=== PATIENT | female | born 1990 | race Caucasian/White ===

== ENCOUNTER 2024-05-24 14:42 | Inpatient (IN) | payer BC, SELFPAY ==
[2024-05-24] VITALS (7 sets, daily range): BP systolic 124–131; BP diastolic 66–81; BMI 27.5; BMI 27.9
[2024-05-24 09:37] LABS: Glucose - Point of Care 111 mg/dl (70-99)
--- NOTE | 2024-05-24 09:46 | EDRN ---
[facility] currently at the pts bedside speaking with the pt and the pts spouse, the pt is lethargic and pale, VS WNL, pt is bradycardic
[2024-05-24 10:01] LABS: % Basophils 0.7 % (0-2); % Eosinophils 0.1 % (0-6); % Immature Granulocytes 0.3 % (0-0.5); % Lymphocytes 12.4 % (20.5-51.1); % Neutrophils 83.5 % (42.2-75.2); Absolute Basophils 0.1 10^3/uL (0-0.2); Absolute Lymphocytes 1.4 10^3/uL (1.2-3.4); Absolute Monocytes 0.3 10^3/uL (0.1-0.6); Absolute Neutrophils 9.5 10^3/uL (1.4-6.5); Hematocrit 38.8 % (37.0-47.0); Hemoglobin 13.5 g/dL (12.0-16.0); Mean Corp Hgb Conc. 34.8 g/dL (33.0-37.0); Mean Corpuscular Hgb 29.5 pg (27.0-31.0); Mean Corpuscular Volume 84.7 fL (81.0-99.0); Mean Platelet Volume 9.3 fL (7.4-10.4); Nucleated Red Blood Cells % 0 %; Platelet Count 330 10^3/uL (130-400); Red Blood Cell Count 4.58 10^6/uL (4.20-5.40); Red Cell Dist. Width 12.4 % (11.5-14.5); White Blood Cell Count 11.3 10^3/uL (4.8-10.8)
[2024-05-24 10:16] LABS: ALT (SGPT) 190 U/L (0-35); AST (SGOT) 61 U/L (14-36); Albumin 4.8 g/dl (3.5-5.0); Alkaline Phosphatase 75 U/L (38-126); Blood Urea Nitrogen 10 mg/dl (7-17); Calcium 9.2 mg/dl (8.4-10.2); Carbon Dioxide 22 mmol/L (22-30); Chloride 101 mmol/L (98-107); Estimated Creatinine Clearance 104 ml/min; Glucose 120 mg/dl (70-99); Lipase 57 U/L (23-300); Potassium 4.2 mmol/L (3.5-5.1); Sodium 138 mmol/L (135-145); Total Bilirubin 0.8 mg/dl (0.2-1.3); Total Protein 7.4 g/dl (6.3-8.2); eGFR > 60.00
[2024-05-24] MEDS: BENADRYL 25 MG IV (10:18)
[2024-05-24] MEDS: COMPAZINE 10 MG IV (10:19)
--- NOTE | 2024-05-24 10:34 | EDRN ---
the pt is resting in stretcher in the lowest position, side rails up x2, call arizmendi within reach, HOB elevated, no s/s of distress, VS WNL, no c/o N/V, will continue to monitor the pt closely
[2024-05-24 10:47] LABS: HCG, Serum Qualitative Screen Negative
--- NOTE | 2024-05-24 11:07 | EDRN ---
the pt pressed the call arizmendi and this RN entered the pts room, the pt stated that she needed to use the bathroom, the pt was able to ambulate to the bathroom and back to the stretcher with no issues, the pt is now resting in stretcher in the lowest
position, side rails up x1, HOB elevated, call arizmendi within reach, no s/s of distress, will continue to monitor the pt closely
--- NOTE | 2024-05-24 11:31 | EDRN ---
urine was sent to lab, the pt is laying in stretcher in the lowest position, side rails up x2, call arizmendi within reach, HOB slightly elevated, no s/s of distress, no c/o N/V, the pt does not want Sp02 monitor or blood pressure cuff on, the pt asked
for a warm blanket and this RN provided a warm blanket for the pt, will continue to monitor the pt closely
[2024-05-24 11:44] LABS: Urine Albumin Negative (Neg - Trace); Urine Bilirubin Negative (Negative); Urine Character Clear (Clear); Urine Color Yellow; Urine Glucose Negative (Negative); Urine Ketone Trace (Negative); Urine Leukocyte Trace (Negative); Urine Nitrite Negative (Negative); Urine Occult Blood Negative (Negative); Urine Urobilinogen Negative (Neg - 1+)
[2024-05-24 12:31] LABS: Urine Bacteria Few (Negative); Urine Red Blood Cell 0-2 /HPF (0-2)
--- NOTE | 2024-05-24 12:46 | ED.GENMED ---
History of Present Illness
General
Chief Complaint: Abdominal Symptoms
Source: patient
Exam Limitations: none
Time Seen by Provider: 05/24/24 09:36
History of Present Illness
History of Present Illness:
33-year-old female presents with nausea vomiting abdominal pain with diarrhea since 5 days ago. This is her third ER visit in 5 days. She was initially seen at [facility] twice. Most recently was 3 days ago. She had a CT scan of her
abdomen then blood work and was hydrated and discharged. She has been using Zofran at home without relief. They tried Reglan without relief. She is unable to tolerate anything by mouth. She notes 1 or 2 loose bowel movements a day. She notes
chills but denies fever. She denies alcohol use. She denies marijuana use. She denies any regular NSAID use. She thinks she may have had something bad to eat.
Past History
Past History
ED Past Medical History: Asthma
ED Past Surgical History: None
Social History
Tobacco: Non-smoker
Alcohol: Occasional
Personal: Single
Living: with family
Employment: Employed
Family History
Family History: Hypertension and Asthma
Phy Exam
Physical Exam
Physical Exam:
General: Somnolent female no acute respiratory distress
HEENT: Normocephalic atraumatic mucosa dry neck is supple heart: Regular rate and rhythm
Lungs: Clear no wheeze
Abdomen soft mildly diffusely tender no guarding or rebound normal bowel sounds
Extremities: No cyanosis
Course
Orders/Labs/Results
Orders:
Orders
05/24/24 09:48
Complete Blood Count/With Diff Urgent
Comprehensive Metabolic Panel Urgent
HCG, Serum Qualitative Screen Urgent
Comment: ADD
Lipase Urgent
05/24/24 09:54
Add On- LAB Urgent
Tests Added?: serum hcg
Diphenhydramine [Benadryl] 25 mg IV NOW STA
Prochlorperazine [Compazine] 10 mg IV NOW STA
05/24/24 11:28
Urinalysis Reflex To Culture Urgent
Date Specimen was Collected: 05/24/24
Time Specimen was Collected: 11:26
Urine Microscopic Reflex Cult Urgent
Abnormal Lab Results
05/24/24 05/24/24 05/24/24
09:34 09:48 11:28
WBC 11.3 H 10^3/uL
(4.8-10.8)
Absolute Neuts (auto) 9.5 H 10^3/uL
(1.4-6.5)
Neutrophils % 83.5 H %
(42.2-75.2)
Lymphocytes % 12.4 L %
(20.5-51.1)
Glucose 120 H mg/dl
(70-99)
AST 61 H U/L
(14-36)
ALT 190 H U/L
(0-35)
Urine Ketones Trace A
(Negative)
Leukocyte Esterase Rfl Trace A
(Negative)
Urine Bacteria (Reflex) Few A
(Negative)
POC Glucose 111 H mg/dl
(70-99)
05/24/24 09:48
05/24/24 09:48
Vital Signs
Initial and Last Documented VS:
Initial Vital Signs
Temp Pulse Resp BP Pulse Ox
99.2 F 63 18 128/78 97
05/24/24 09:27 05/24/24 09:27 05/24/24 09:27 05/24/24 09:27 05/24/24 09:27
Last Documented Vital Signs
Temp Pulse Resp BP Pulse Ox
99.2 F 86 20 131/71 99
05/24/24 09:27 05/24/24 12:20 05/24/24 12:20 05/24/24 12:20 05/24/24 12:20
MDM/Problems Addressed
Differential Diagnosis Includes:
Persistent nausea vomiting with loose stools for 5 days. Zofran at home not helping. Looks quite dry on exam.
I reviewed records from [facility]. She had a negative CT scan of her abdomen 3 days ago. She has a prior history of cholecystectomy. Labs reviewed here without significant abnormality. Patient still nauseous despite Compazine and
Benadryl here. She was hydrated. Given that it is her third ER visit in 5 days for intractable nausea will admit to hospital for further evaluation
*Critical Care Note
Total Time (30-74mins, 75-104mins- exclusive of procedures): Not Applicable
ED Attending Note
-
Portions of this chart may have been created with voice recognition software.� Occasional wrong word or��sound alike� substitutions may have occurred due to the inherent limitations of voice recognition software.
Discharge Plan
Departure
Patient Disposition: Admit
Date of Disposition: 05/24/24
Time of Disposition: 12:49
Admit to: Med/Surg
Presentation/result/management discussed w/ accepting MD/DO: Hospitalist
Discharge Problem:
Intractable nausea and vomiting
Prescriptions:
No Action
albuterol sulfate 1 PUFF HFA aerosol inhaler
1 - 2 puff inhalation .Q4-6HPRN PRN (Reason: WHEEZING) Qty: 1 0RF
albuterol sulfate 2.5 MG/3 ML solution for nebulization
2.5 mg inhalation QID Qty: 30 0RF
dicyclomine 20 MG tablet
20 mg PO QID
Referrals:
Gustabo Pepper MD [Family Provider] -
Interventions
Interventions:
*Risk Screen - Suicide Last Done: 05/24/24 09:27
*General Assessment Last Done: 05/24/24 09:27
*Neglect/Abuse Screening Last Done: 05/24/24 09:27
ED- Fall Risk Assessment Last Done: 05/24/24 09:53
*ED COVID-19 Vaccine History Last Done: 05/24/24 09:53
TB-Tpdjaq-Vhqaymwkim Assessment Last Done: 05/24/24 09:53
Discharge Date and Time
Print Language: SETSWANA
--- NOTE | 2024-05-24 13:02 | EDRN ---
the pt is resting in stretcher in the lowest position, side rails up x2, call arizmendi within reach, HOB elevated, no s/s of distress, no c/o N/V currently, the pt is going to be admitted, the pt and the pts family were updated on plan of care, will
continue to monitor the pt closely
--- NOTE | 2024-05-24 13:38 | HPS.HSE ---
Addendum entered and electronically signed by Campbell Gómez MD 05/24/24 15:30:
Seen and examined by me independently in collaboration with the medical director/head team physician Reece.
Past medical history/social history/medication/allergies reviewed.
Lab data and imaging data reviewed.
Patient was in her usual state of health started with an acute GI symptoms since Monday.
She definitely thinks it was a salad she ate on Monday. Next morning she started to have nausea and multiple episodes of vomiting which did not resolve. She also had some abdominal discomfort from all the nausea and vomiting. She also had a
loose stool still yesterday. Multiple stools more than 5 times a day. Did not record any temperature but she was not feeling great. No other people sick with a GI illness at home and nobody she had her salad.
No other systemic involvement. Denies any prodrome of upper respiratory illness. No skin rash or joint symptoms.
Denies history of IBD or recurrent GI issues.
She had been to [place] twice and was discharged home after a CT scan of the abdomen pelvis on symptomatic treatments.
Patient continues to have intractable nausea vomiting and was unable to have any solid diet so came back to the ER.
Afebrile here and hemodynamically stable. Chest clear.
Abdomen soft, nondistended and bowel sounds present. Nonspecific discomfort but no rebound guarding or rigidity.
CT scan of abdomen pelvis report from [facility] noted-no acute findings. Patient postcholecystectomy with biliary dilatation. No colitis mention.
Mild leukocytosis noted then and today. BMP within the normal limits but mild AST ALT elevation noted which were normal 3 days ago when checked at [facility].
Acute GI illness in the form of nausea vomiting and diarrhea. Prolonged for 5 days with intermittent symptoms. No obvious acute pathology evident on recent CT of the abdomen pelvis. Mild transaminitis noted. Rule out forms acute gastro
enteritis. Check stools studies as below and start on symptomatic tx , IV fluids. Admit to hospital due to multiple ER visits and failed OP tx.
Check UDS for marijuana which she denies.
Follow LFTs closely .
Original Note:
Family Physician
-
Family Physician: Gustabo Pepper
Chief Complaint
-
Intractable nausea and vomiting
History of Present Illness
33-year-old female here for persistent vomiting nausea and diarrhea 5 days duration. Vomiting and diarrhea are without blood. This is her third ER visit in the past 5 days. She has been using Zofran and Reglan at home which do not relieve her
symptoms. She cannot tolerate anything by mouth. She reports chills but no fever. She had a CT at [facility] which was normal. Patient reports 5 episodes of vomiting today. Patient reports she feels symptoms started after eating a salad.
Medical History
Past Medical History
Past Medical History: Reports Asthma
Past Surgical History: Reports Cholecystectomy
Social History
Tobacco: Non-smoker
Alcohol: None
Drug: None
Personal:
Living: With Family
Employment: Employed
Family History
Family History: Not pertinent
Allergies / Home Medications
Allergies reflects when Allergies were last updated in [facility].
Home Medications with original date entered in [facility]
Allergy/Medication List:
Allergies
Allergy/AdvReac Type Severity Reaction Status Date / Time
zithromycin Allergy tongue Uncoded 05/24/24 09:27
swells
Home Medications
albuterol sulfate 90 mcg/actuation aerosol inhaler 1 puff inhalation R Q6HPRN PRN WHEEZING 05/24/24
cholecalciferol (vitamin D3) 25 mcg (1,000 unit) tablet (Vitamin D3) 25 mcg PO DAILY 05/24/24
fluticasone 250 mcg-salmeterol 50 mcg/dose blistr powdr for inhalation 1 inh inhalation R BID 05/24/24
loratadine 10 mg tablet (Claritin) 10 mg PO DAILY 05/24/24
ondansetron 4 mg disintegrating tablet 4 mg PO Q8HPRN PRN nausea 05/24/24
vitamin B complex 1 tab PO DAILY 05/24/24
Review of Systems
-
History Source: Patient
A 12 point ROS was completed and negative except as noted: Yes
Constitutional: Reports Fatigue; Denies Fever
Respiratory: Reports No Symptoms
Cardiac: Reports No Symptoms
Abdomen/GI: Reports Nausea, Vomiting and Diarrhea; Denies Abdominal Pain
Physical Exam
Vital Signs
Vital Signs
Temp Pulse Resp BP Pulse Ox
99.2 F 86 20 131/71 99
05/24/24 09:27 05/24/24 12:20 05/24/24 12:20 05/24/24 12:20 05/24/24 12:20
Physical Exam
General: Well Nourished and Appears in Distress
Respiratory: Clear
Cardiac: S1/S2 and Regular Rhythm
GI: Soft, Non Distended, Normal Bowel Sounds and Tender (Slightly tender to deep palpation, diffuse)
Musculoskeletal: No Edema
Skin: Warm and Dry
Neuro: Awake, Alert, Oriented and AO x 3
Psych: Calm and Intact Judgment/Insight
Laboratory Results
-
05/24/24 09:48
05/24/24 09:48
Laboratory Results
Total Bilirubin 0.8 mg/dl (0.2-1.3) 05/24/24 09:48
AST 61 U/L (14-36) H 05/24/24 09:48
ALT 190 U/L (0-35) H 05/24/24 09:48
Alkaline Phosphatase 75 U/L (38-126) 05/24/24 09:48
Lipase 57 U/L (23-300) 05/24/24 09:48
Data Reviewed
-
Lab Data: Labs Reviewed by me and Discussed with Physician
Impression/Plan
-
IMPRESSION:
33-year-old female presents for intractable nausea vomiting and diarrhea 5 days duration.
PLAN:
#Nausea and vomiting
Patient reports 5 days of intractable nausea and vomiting
Patient reports 5 episodes of vomiting today
Per patient p.o. Zofran and Reglan have not controlled her symptoms
Patient has not been able to tolerate anything by mouth, liquid or solid
Patient appears tired and dry with eyes closed during exam and interview
Beta-hCG negative
Continuous IV NSS at 80 mL per hour
Nausea control with IV Zofran
Clear liquid diet
#Diarrhea
Patient reports diarrhea 5 days duration
Check WBC stool
Check C. difficile antigen
Check Salmonella, Shigella, Campylobacter, stool and ova
#Asthma
Patient reports past medical history of asthma
Continue home asthma medications and nebs
#Leukocytosis
White blood cells 11.3 on ED labs
Patient afebrile, does report chills previously
Trend with daily CBC
Follow fever curve
#Elevated LFTs
LFTs elevated on admission, ALT greater than AST
Lipase within normal limits
Trend with daily CMP
CODE STATUS full code
DVT prophylaxis: Lovenox
Diet: Clear liquid
--- NOTE | 2024-05-24 15:12 | EDRN ---
this RN called the receiving unit and notified them that paper report was going to be tubed up
[2024-05-24] MEDS: NSS 1000 IV (16:20)
[2024-05-24 16:28] LABS: Barbiturates Positive (Negative)
[2024-05-24 16:29] LABS: Amphetamines Negative (Negative); Benzodiazepines Negative (Negative); Buprenorphine Negative (Negative); Cocaine Negative (Negative); Marijuana Negative (Negative); Methadone Negative (Negative); Methamphetamines Negative (Negative); Opiates Negative (Negative); Phencyclidine Negative (Negative); Tricyclic Antidepressants Negative (Negative)
[2024-05-24] MEDS: LOVENOX 40 MG SC (17:36)
[2024-05-24] MEDS: ADVAIR HFA 115/21 MCG INHALER 2 PUFF INH (20:12)
[2024-05-24] MEDS: ZOFRAN 4 MG IV (22:42)
[2024-05-25] MEDS: NSS 1000 IV (04:09)
[2024-05-25 05:28] LABS: Hematocrit 34.3 % (37.0-47.0); Mean Corpuscular Volume 88.6 fL (81.0-99.0); Mean Platelet Volume 9.4 fL (7.4-10.4); Platelet Count 291 10^3/uL (130-400); Red Blood Cell Count 3.87 10^6/uL (4.20-5.40); Red Cell Dist. Width 12.2 % (11.5-14.5); White Blood Cell Count 10.7 10^3/uL (4.8-10.8)
[2024-05-25 06:04] LABS: ALT (SGPT) 116 U/L (0-35); AST (SGOT) 26 U/L (14-36); Albumin 3.4 g/dl (3.5-5.0); Alkaline Phosphatase 63 U/L (38-126); Blood Urea Nitrogen 7 mg/dl (7-17); Calcium 8.6 mg/dl (8.4-10.2); Carbon Dioxide 27 mmol/L (22-30); Chloride 103 mmol/L (98-107); Estimated Creatinine Clearance 107 ml/min; Glucose 91 mg/dl (70-99); Potassium 3.8 mmol/L (3.5-5.1); Sodium 139 mmol/L (135-145); Total Bilirubin 0.8 mg/dl (0.2-1.3); Total Protein 5.7 g/dl (6.3-8.2); eGFR > 60.00
[2024-05-25 07:00] VITALS: BP 108/69
[2024-05-25] MEDS: ADVAIR HFA 115/21 MCG INHALER 2 PUFF INH (07:37)
--- NOTE | 2024-05-25 09:05 | W.PN.HOSP.TC ---
Addendum entered and electronically signed by Campbell Gómez MD 05/25/24 15:04:
Seen and examined by me independently in collaboration with the neuropsychology medical consultant.
Lab data and imaging data reviewed.
Addendum as below :
Patient with spontaneous and significant improvement in her GI symptoms. Denies any further upper GI symptoms of nausea vomiting. Tolerating clear liquids. Denies any abdominal pain. Had 2 small loose bowel movement today. No fever chills.
Abdomen benign.
Afebrile and hemodynamically stable.
Improved mild transaminitis. Otherwise labs are okay.
Unclear form of gastroenteritis. Self-limiting it seems. Continue with conservative treatments. Suspected mild transaminitis may be reactive-advised to get a repeat CMP in a week. Advance diet to low residue and if she tolerates she could go
home.
Portions of this chart may have been created with voice recognition software. Occasional wrong word or 'sound alike' substitutions may have occurred due to the inherent limitations of voice recognition software.
Original Note:
Today's Communication/Plan
-
Advance diet
Discontinue fluids
Continue antiemetics and supportive measures
Discharge home if tolerate diet well
Assessment / Plan
Assessment / Plan
IMPRESSION:
33-year-old female presents for intractable nausea vomiting and diarrhea 5 days duration.
PLAN:
#Nausea and vomiting
5 days of intractable nausea and vomiting with multiple episodes of vomiting on admission, unresponsive to home p.o. antiemetics
Urinalysis negative for marijuana
Beta-hCG negative
Fluids discontinued
Nausea control with IV Zofran
Patient reports nausea controlled well current antiemetics
Has not had any further episodes of vomiting since admission
Advance diet to low residue
Patient tolerated low residue diet well, no nausea or abdominal pain
#Diarrhea
Per patient has resolved
Patient reports diarrhea 5 days duration prior to admission
Patient had 2 episodes of loose bowel movements this morning, stool samples and cultures were collected
Samples currently pending, will call patient with results of positive
Check WBC stool
Check C. difficile antigen
Check Salmonella, Shigella, Campylobacter, stool and ova
#Asthma
Patient reports past medical history of asthma
Continue home asthma medications and nebs
#Leukocytosis
Resolved
White blood cells 11.3 on ED labs
WBCs 10.7 today
Trend with daily CBC
Fever curve has been flat
#Elevated LFTs
Improving
LFTs elevated on admission, ALT greater than AST
Lipase within normal limits
Trend with daily CMP
CODE STATUS full code
DVT prophylaxis: Lovenox
Diet: Clear liquid
Anticipated Discharge: 24 - 48 hours
Subjective/Interval History
-
Date of Service: May 25, 2024
Patient looks much better than yesterday, able to keep eyes open and have a thorough conversation today
Patient reports nausea and vomiting and diarrhea have all resolved
Controlled well with current supportive measures
Has not had any bowel movement so stool samples and cultures have not been collected
Objective Data
-
Labs:
Laboratory Results
05/25/24
04:48
WBC 10.7
Hgb 12.0
Hct 34.3 L
Plt Count 291
Sodium 139
Potassium 3.8
Chloride 103
Carbon Dioxide 27
BUN 7
Creatinine 0.8
Glucose 91
Calcium 8.6
Total Bilirubin 0.8
AST 26
ALT 116 H
Alkaline Phosphatase 63
Vital Signs:
Vital Signs
Temp Pulse Resp BP Pulse Ox
98.2 F 60 16 108/69 98
05/25/24 07:00 05/25/24 07:39 05/25/24 07:39 05/25/24 07:00 05/25/24 07:39
I&O
05/24/24 05/25/2405/26/24
06:59 06:59 06:59
Intake Total 1680 / 1680
Output Total 300 / 300
Balance 1380 / 1380
Review of Systems
-
History Source: Patient
Constitutional: Reports No Symptoms
Respiratory: Reports No Symptoms
Abdomen/GI: Reports Abdominal Pain (Slight discomfort); Denies Nausea, Vomiting or Diarrhea
Physical Exam
-
General: Well Developed, Well Nourished, No Apparent Distress, Comfortable and Conversant
Respiratory: Clear to Auscultation
Cardiac: Regular Rhythm and S1/S2
GI: Soft, Nondistended, Normal Bowel Sounds and Tender (Slight discomfort to deep palpation)
Skin: Warm and Dry
Neuro: Awake, Alert, Oriented and AO x 3
Psych: Calm and Intact Judgement/Insight
Data Reviewed
-
Labs: Labs Reviewed by me and Discussed with Physician
[2024-05-25 14:16] VITALS: BP 110/68
--- NOTE | 2024-05-25 14:20 | W.DCSUMMARY ---
Discharge Summary
Discharge Data
Date of Admission: 05/24/24
Date of Discharge: 05/25/24
-
Pending Results: Yes
Additional Pending Results:
Stool cultures
Stool white blood cells
Campylobacter, Salmonella, Shigella, ova, parasites
Hospital Course
Discharging Physician : Rico Abrams
Disposition : Home
Primary care physician : Gabrielle Nayak NP
Principal Discharge diagnosis : acute nausea and vomiting with diarrhea suspected secondary to form of gastroenteritis
Chronic Discharge diagnosis : Asthma
Hospital Course : 33-year-old female presents for persistent nausea vomiting and diarrhea of 5 days duration. Nausea and vomiting without blood. This was her third ER visit for this in the past 5 days, she went to [facility] twice. She had failed
outpatient management using Zofran and Reglan at home which did not relieve her symptoms. She was not able to tolerate anything by mouth both solids and liquids. She reports chills but no fever. She had a CT at [facility] which was normal, results
were reviewed in emergency department. Patient reports that she felt the symptoms started after she ate a bad salad. At the time of admission she was vomiting and nauseous. In the ED was also noted that the patient had elevated liver function
test. Patient was admitted to [facility] placed on IV fluids and IV antiemetics. Stool cultures, white blood cells and UDS were all checked. The first morning of her admission, patient reports that her nausea and vomiting have subsided with IV
Zofran. Patient did have 2 watery bowel movements, samples for stool culture and studies were collected. They are currently pending at the time of discharge. Patient was medically stable and endorsed wanting to go home. Patient's diet was
advanced from clear liquids to low residue. Patient tolerated diet well with no nausea vomiting. Patient's liver function tests were downtrending at the time of discharge. Patient was discharged with an oral course of Zofran and will follow-up
with her primary care physician within 1 week of discharge, to follow-up on her nausea and vomiting/diarrhea and for a CMP in 1 week to evaluate LFTs. Patient was discharged home with primary care follow-up.
Important imaging findings : No imaging
Procedure findings : No imaging
Discharge Plan
-
Patient Disposition: Home (Routine Discharge)
Discharge Diagnosis/Procedures: acute nausea and vomiting with diarrhea suspected secondary to form of gastroenteritis
Condition: Good
Diet: Low Residue
Activity: No restrictions
Driving Restrictions: As prior to admission
Bathing Restrictions: None
Activity Restrictions/Additional Instructions:
Please follow up with your PCP within one week of discharge
CMP in one week from now with pcp to check for elevated LFTs
Referrals:
Gabrielle Nayak CRNP [Family Provider] - in less than 1 week
Prescriptions:
Continued
vitamin B complex Tablet
1 tab PO DAILY
loratadine [Claritin] 10 mg Tablet
10 mg PO DAILY
cholecalciferol (vitamin D3) [Vitamin D3] 25 mcg (1,000 unit) Tablet
25 mcg PO DAILY
albuterol sulfate 1 PUFF HFA aerosol inhaler
1 puff inhalation R Q6HPRN PRN (Reason: WHEEZING)
fluticasone propion-salmeterol 250-50 mcg/dose Blister With Device
1 inh INHALATION R BID
Patient Comments:
05/24/24: Patient does not know name of medication she uses, but confirms 1 inhalation BID. This medication was sourced from [facility] record.
ondansetron 4 mg Tablet,Disintegrating
4 mg PO Q8HPRN PRN (Reason: nausea) Qty: 15 0RF
Discharge Orders:
Discharge Patient (As Directed); Ordered 05/25/24
Ordered By: Todd Abrams
Discharge Date and Time
Discharge Date/Time: 05/25/24 14:23
Print Language: MALTESE
--- NOTE | 2024-05-25 15:07 | CM ---
Patient discharged before CM able to complete initial assessment. CM reviewed chart, spoke with nurse, patient home no needs.
Plan; home no needs.
== END 2024-05-25 14:23 | disposition home or self-care (01) | DRG 392 ==
LOC: 4 WEST ACU 14:42
PROVIDERS: Physician Assistant; ADMITTING PHYSICIAN Internal Medicine; EMERGENCY PHYSICIAN Emergency Medicine; FAMILY PHYSICIAN Family Medicine
DX: K52.9 Noninfective gastroenteritis and colitis, unspecified (principal); J45.909 Unspecified asthma, uncomplicated; I10 Essential (primary) hypertension; R11.2 Nausea with vomiting, unspecified; R74.01 Elevation of levels of liver transaminase levels; R79.89 Other specified abnormal findings of blood chemistry; D72.829 Elevated white blood cell count, unspecified; Z88.1 Allergy status to other antibiotic agents; Z90.49 Acquired absence of other specified parts of digestive tract; Z79.51 Long term (current) use of inhaled steroids
CPT/HCPCS: 80053; 80306; 81003; 81015; 82962; 83690; 84703; 85025; 85027; 87045; 87046; 87324; 87427; 87449; 89055; 94640; 96374; 96375; 99284